=== PATIENT | female | born 1985 | race African-American/Black ===

== ENCOUNTER 2016-06-10 09:07 | Inpatient (IN) | payer OTHER ==
[~2016-06-10] VITALS: Ht 172.7 cm; Wt 72.0 kg
[2016-06-10] MEDS ORDERED: SOD CHLORIDE 0.9% 1,000 ML IV STA ×2 (09:28→13:20)
[2016-06-10] MEDS ORDERED: morphine 4 MG/ML VIAL IV STA ×2 (09:28→11:47)
[2016-06-10] MEDS ORDERED: ONDANSETRON 4 MG INJ IV STA (09:28)
--- NOTE | 2016-06-10 10:04 | ERD ---
ER Documentation Chief Complaint Date/Time DATE: 06/10/16 TIME: 10:01 Chief Complaint LLQ PAIN X 3 DAYS HPI This is a 31-year-old female with medical history of irregular menstrual periods all her life and iron deficient anemia presents to the emergency department complaining of severe left lower quadrant abdominal pain for the past day. Patient states that the pain started feeling like cramping in her left lower quadrant and it progressed into severe sharp constant pain. Patient states that she had 4 episodes of vomiting. She admits to nausea. She states her last bowel movement was yesterday and it was loose. Patient states that she started her menstrual period 3 weeks ago and still ongoing. She states that she has followed up with her physician in [place] last December regarding her irregular menstrual period, they suggested to put her on oral contraceptives however she states that she does not want to take that yet. Patient states that she has chills but denies any fevers. She states that she has not taken any medications for this. Patient states that she she will take iron and B12 only when she remembers. ROS All systems reviewed and are negative except as per history of present illness. Allergies Allergies: Coded Allergies: No Known Allergy (Unverified , 06/10/16) PMhx/Soc Medical and Surgical Hx: pt denies Surgical Hx Hx Alcohol Use: No Hx Substance Use: No Hx Tobacco Use: No Physical Exam Vitals Vital Signs Date Time Temp Pulse Resp B/P Pulse Ox O2 Delivery O2 Flow Rate FiO2 06/10/16 09:10 98.0 92 18 134/84 98 Physical Exam GENERAL: well-developed/well-nourished, in no apparent distress, non-toxic appearing HENT: NC/AT, moist mucous membranes EYES: Conjunctiva normal NECK: Supple, no lymphadenopathy PULM: CTA bilaterally, no rales, rhonchi, or wheezing heard CV: Normal S1S2, RRR, good capillary refill GI: Soft, non-distended, tender to palpation in all quadrants, left greater than although the quadrants, no tenderness in the pelvic region Normal bowel sounds, no masses or organomegaly felt on exam No gross peritonitis, no bruits Negative Rovsing, negative Carlos, negative McBurney's point, Negative CVAT BACK: No masses EXT: No clubbing, cyanosis, or edema NEURO: Alert and Orientated SKIN: Intact, normal turgor PSYCH: Normal mood and mentation Result Diagram: 06/10/16 1005 06/10/16 1005 Results 24 hrs Laboratory Tests Test 06/10/16 09:35 06/10/16 10:05 Urine Color YELLOW Urine Clarity SLIGHTLY CLOUDY Urine pH 5.0 Urine Specific Carson >=1.030 Urine Ketones 40 Urine Nitrite NEGATIVE Urine Bilirubin 1+ Urine Ictotest NEGATIVE Urine Urobilinogen 0.2 E.U./dL Urine Leukocyte Esterase NEGATIVE Urine Microscopic RBC 25-50/HPF Urine Microscopic WBC 2-5/HPF Urine Epithelial Cells FEW Urine Bacteria FEW Urine Hemoglobin 3+ Urine Glucose NEGATIVE% Urine Total Protein 1+ White Blood Count 10.110^3/ul Red Blood Count 3.6710^6/ul Hemoglobin 12.5g/dl Hematocrit 37.0% Mean Corpuscular Volume 100.8fl Mean Corpuscular Hemoglobin 34.1pg Mean Corpuscular Hemoglobin Concent 33.8g/dl Red Cell Distribution Width 17.6% Platelet Count 28283^3/UL Mean Platelet Volume 8.9fl Neutrophils % 91.5% Lymphocytes % 5.1% Monocytes % 2.9% Eosinophils % 0.0% Basophils % 0.1% Nucleated Red Blood Cells % 0.0/100WBC Neutrophils # 9.310^3/ul Lymphocytes # 0.510^3/ul Monocytes # 0.310^3/ul Eosinophils # 0.010^3/ul Basophils # 0.010^3/ul Nucleated Red Blood Cells # 0.010^3/ul Prothrombin Time 11.9Sec Prothrombin Time Ratio 0.9 INR International Normalized Ratio 0.88 Activated Partial Thromboplast Time 20.6Sec Sodium Level 136mmol/L Potassium Level 3.5mmol/L Chloride Level 99mmol/L Carbon Dioxide Level 21mmol/L Anion Gap 20 Blood Urea Nitrogen 5mg/dl Creatinine 0.56mg/dl Glucose Level 147mg/dl Calcium Level 9.6mg/dl Total Bilirubin 0.4mg/dl Direct Bilirubin 0.00mg/dl Indirect Bilirubin 0.4mg/dl Aspartate Amino Transf (AST/SGOT) 24IU/L Alanine Aminotransferase (ALT/SGPT) 15IU/L Alkaline Phosphatase 71IU/L Total Protein 8.4g/dl Albumin 4.5g/dl Globulin 3.90g/dl Albumin/Globulin Ratio 1.15 Lipase 20709N/L Beta HCG, Quantitative < 2.4mIU/ml Current Medications Medications (Trade) Dose Ordered Sig/Renay Route PRN Reason Start Time Stop Time Status Last Admin Dose Admin Sodium Chloride (NS) 1,000 ml @ 1,000 mls/hr Q1H STAT IV 06/10/16 09:28 06/10/16 10:27 DC 06/10/16 10:12 Morphine Sulfate (morphine) 6 mg ONCE STAT IV 06/10/16 09:28 06/10/16 09:31 DC 06/10/16 10:12 Ondansetron HCl (Zofran Inj) 8 mg ONCE STAT IV 06/10/16 09:28 06/10/16 09:31 DC 06/10/16 10:11 Morphine Sulfate (morphine) 4 mg ONCE STAT IV 06/10/16 11:47 06/10/16 11:49 DC 06/10/16 11:56 Hydromorphone HCl 0.5 mg 0.5 mg ONCE STAT IV 06/10/16 13:19 06/10/16 13:20 DC Sodium Chloride (NS) 1,000 ml @ 1,000 mls/hr Q1H STAT IV 06/10/16 13:20 06/10/16 14:19 Procedures/MDM This is a 31-year-old female with medical history of irregular menstrual periods all her life and iron deficient anemia presents to the emergency department complaining of severe left lower quadrant abdominal pain, nausea and vomiting for the past day due to acute pancreatitis, unknown etiology at this time. IV access is established. Lab work was drawn. CBC did not show any evidence of leukocytosis or anemia. CMP did not show any evidence of renal, liver, or electrolyte abnormalities. Lipase significantly elevated at ~20,000. UA did not show any evidence urinary tract infection. Urine preg test negative. CT of the abdomen and pelvis without contrast was done and radiologist stated: 1. Mild fluid posterior to the pancreatic body and tail extending into the left anterior pararenal space with no definite pancreatic mass. Rule out pancreatitis. A follow-up triple phase CT scan of the abdomen and pelvis may be helpful for further evaluation. 2. Small amount of free fluid in the cul-de-sac. No intra-abdominal abscess or free air. 3. No evidence of calcified urinary calculi or obstructive uropathy. 4. Unremarkable gallbladder without biliary ductal dilation. Pelvic ultrasound was done and radiologist stated: 1. Fibroids in the uterus measuring 2.3 cm and 2.1 cm. 2. Mild free fluid in the cul-de-sac. Clinical correlation advised. 3. Otherwise normal pelvic ultrasound. Patient was given 2 L of fluids in the ED, morphine, Dilaudid and Zofran. Pain symptoms have stabilized in the ED. I have consulted my supervising physician who will consult the hospitalist on site. Further management will be done by Dr. Garsia. Patient was stable throughout the whole encounter Departure Diagnosis: Primary Impression: Pancreatitis Condition: Serious MISAEL GALLEGOS PA-C Jun 10, 2016 10:04
[2016-06-10 10:33] LABS: ADD SCAN DIFF NO
[2016-06-10 10:44] LABS: ADD UMIC YES; URINE BILIRUBIN (Dip) 1+ (NEGATIVE); URINE BLOOD (Dip) 3+ (NEGATIVE); URINE COLOR YELLOW (YELLOW); URINE GLUCOSE (Dip) NEGATIVE (NEGATIVE); URINE KETONES (Dip) 40 (NEGATIVE); URINE LEUKOCYTE ESTERASE (Dip) NEGATIVE (NEGATIVE); URINE NITRITE (Dip) NEGATIVE (NEGATIVE); URINE TOTAL PROTEIN (Dip) 1+ (NEGATIVE); URINE UROBILINOGEN (Dip) 0.2 E.U./dL (0.1-1.0)
[2016-06-10 10:46] LABS: ABNORMAL IP MESSAGE 1; BASOPHILS % 0.1 % (0.0-2.0); HEMOGLOBIN 12.5 g/dl (12.0-16.0); LYMPHOCYTES # 0.5 10^3/ul (0.8-2.9); LYMPHOCYTES % 5.1 % (15.0-51.0); MEAN CORPUSCULAR HEMOGLOBIN 34.1 pg (29.0-33.0); MEAN CORPUSCULAR HGB CONC 33.8 g/dl (32.0-37.0); MEAN CORPUSCULAR VOLUME 100.8 fl (82.0-101.0); MEAN PLATELET VOLUME 8.9 fl (7.4-10.4); MONOCYTE # 0.3 10^3/ul (0.3-0.9); MONOCYTES % 2.9 % (0.0-11.0); NEUTROPHIL # 9.3 10^3/ul (1.6-7.5); NEUTROPHILS % 91.5 % (39.0-77.0); PLATELET COUNT 427 10^3/UL (140-415); RED BLOOD COUNT 3.67 10^6/ul (4.20-5.40); RED CELL DISTRIBUTION WIDTH 17.6 % (11.5-14.5); WHITE BLOOD COUNT 10.1 10^3/ul (4.8-10.8)
[2016-06-10 10:51] LABS: ALBUMIN 4.5 g/dl (3.3-4.9)
[2016-06-10 10:52] LABS: POTASSIUM 3.5 mmol/L (3.5-5.1)
[2016-06-10 10:53] LABS: INR 0.88; PROTIME 11.9 Sec (12.2-14.2); PT RATIO 0.9
[2016-06-10 10:54] LABS: BILIRUBIN,INDIRECT 0.4 mg/dl (0-1.1); BILIRUBIN,TOTAL 0.4 mg/dl (0.2-1.3); CREATININE 0.56 mg/dl (0.44-1.00); PARTIAL THROMBOPLASTIN TIME 20.6 Sec (25.0-35.0)
[2016-06-10 10:55] LABS: ALBUMIN/GLOBULIN RATIO 1.15; CALCIUM 9.6 mg/dl (8.4-10.2); TOTAL PROTEIN 8.4 g/dl (6.1-8.1)
[2016-06-10 10:58] LABS: BACTERIA,URINE FEW; URINE RBCS 25-50 /HPF (0)
[2016-06-10 10:59] LABS: ICTOTEST NEGATIVE (NEGATIVE)
--- NOTE | 2016-06-10 11:53 | RADRPT ---
PROCEDURE: CT Abdomen and pelvis without contrast. CLINICAL INDICATION: Left lower quadrant pain for 3 days TECHNIQUE: CT scan of the abdomen and pelvis without contrast was performed on a multidetector hig h-resolution CT scan. . Coronal and sagittal reformatted images were obtained from the axial [facility] e images. Standard CT scan of the abdomen pelvis without contrast protocols were performed. The total exam CTDI equals 10.80 mGy and the total exam DLP equals 662.55 mGy-cm. One or more of the following dose reduction techniques were used: - Automated exposure control. - Adjustment of the mA and/or kV according to patient size. Use of iterative reconstruction technique. COMPARISON: Pelvic ultrasound 06/10/2016 FINDINGS: The appendix is unremarkable. The stomach, small bowel and large bowel are unremarkable. There is mild fluid posterior to the pancreatic body and tail extending into the left anterior parar enal space with no definite pancreatic mass. Rule out pancreatitis. A follow-up CT triple phase sc an of the abdomen and pelvis may be helpful to further evaluate the pancreas. No evidence of pancre atic duct dilation. The gallbladder is unremarkable and there is no evidence of biliary ductal dilation. The liver sple en adrenal glands and kidneys are normal in size configuration without focal lesions. Negative for renal calcified calculi or hydronephrosis bilaterally. Small amount of free fluid in the cul-de-sac. No localized intra-abdominal fluid collection to sugg est abscess. No evidence of intra or free air. There is a calcified leiomyoma involving the anterio r uterine fundal region. No evidence of adnexal masses. The aorta is unremarkable. The lung bases are clear. There is a mild levorotatory scoliosis of the lumbar spine. There are no acute osseous findings are osteoblastic/osteolytic lesions. Lower thor acic abdominal pelvic mascorro are unremarkable. IMPRESSION: 1. Mild fluid posterior to the pancreatic body and tail extending into the left anterior pararenal space with no definite pancreatic mass. Rule out pancreatitis. A follow-up triple phase CT scan of the abdomen and pelvis may be helpful for further evaluation. 2. Small amount of free fluid in the cul-de-sac. No intra-abdominal abscess or free air. 3. No evidence of calcified urinary calculi or obstructive uropathy. 4. Unremarkable gallbladder without biliary ductal dilation. RPTAT:AAJJ Ijeoma Oneill Physician Date Time Electronically viewed and signed by Ijeoma Oneill Physician on 06/10/2016 11:52 BM/
--- NOTE | 2016-06-10 12:36 | RADRPT ---
PROCEDURE: US Pelvis. CLINICAL INDICATION: Pelvic pain. TECHNIQUE: The pelvis was evaluated with transabdominal and transvaginal sonography in the axial a nd sagittal planes. COMPARISON: CT scan of the abdomen and pelvis done earlier the same day. FINDINGS: Uterus: 6.6 x 3.4 x 4.1 cm. Endometrium: 5.7 mm. Right ovary: 2.8 x 1.9 x 2.0 cm. Left ovary: 2.7 x 1.8 x 2.3 cm. Uterine masses: There is an anterior partially calcified fibroid in the uterus measuring 2.3 x 1.6 x 2.1 cm and a left-sided hypoechoic fibroid measuring 1.8 x 2.1 x 2.0 cm Ovarian masses: None. Color Doppler and pulsed Doppler sonography demonstrate normal flow to the ova pooja. Other pelvic masses: None. Free fluid: There is mild free fluid in the cul-de-sac. IMPRESSION: 1. Fibroids in the uterus measuring 2.3 cm and 2.1 cm. 2. Mild free fluid in the cul-de-sac. Clinical correlation advised. 3. Otherwise normal pelvic ultrasound. RPTAT: QQ .Osiel Guerrero MD, Date Time Electronically viewed and signed by .Osiel Guerrero MD, on 06/10/2016 12:36 .R/
[2016-06-10] MEDS ORDERED: HYDROmorphONE 1 MG/ML SYG IV STA (13:19)
[2016-06-10] MEDS ORDERED: ONDANSETRON 4 MG INJ IV PRN ×2 (13:30→14:30)
[2016-06-10] MEDS ORDERED: ACETAMINOPHEN 325 MG TAB PO PRN ×2 (13:30→14:30)
--- NOTE | 2016-06-10 13:30 | QN ---
Documentation Comment I have seen and evaluated the patient along with the PA and/or DIESEL ENGINE SPECIALIST provider. I agree with the evaluation and plan of care. Please see their documentation for full ER course and evaluation. In short: The patient presents with abdominal pain radiating to her back. She did reports remote alcohol history but none recently. On exam: Benign abdominal exam, negative Carlos sign, patient is otherwise well-appearing Assessment and plan: Laboratory testing shows evidence of acute pancreatitis. Nonobstructive hepatobiliary pattern. CT imaging confirms pancreatitis. No signs or symptoms of choledocholithiasis or acute cholelithiasis. No evidence of mass. The patient is otherwise well-appearing in the emergency room. She has received IV fluids, pain medication, is made n.p.o. Inpatient hospitalization for trending of lipase would be appropriate. Unclear trigger of the patient's finger otitis, consider alcohol however the patient does report no alcohol use recently. Accepting care team and consultations: I discussed the current laboratory data, diagnostic imaging and emergency care provided. Admitting team: Dr. Lovett Admitting team indication: Insurance directed Diagnostic impression: Acute pancreatitis DIMA CONSTANTINO MD Jun 10, 2016 13:30
--- NOTE | 2016-06-10 13:38 | RADRPT ---
PROCEDURE: Right upper quadrant abdominal ultrasound. CLINICAL INDICATION: Abdominal pain, pancreatitis TECHNIQUE: Barajas scale and color doppler ultrasound images of the right upper quadrant. COMPARISON: CT abdomen pelvis 06/10/2016 FINDINGS: Pancreas: Pancreas is poorly visualized. Liver: Morphology: The right lobe of the liver is elongated measuring up to 18.0 cm which may reflect Daniela del's lobe configuration. Echogenicity: Normal. Focal lesions: None. Main portal vein: Patent with hepatopetal flow. Biliary System: Normal appearing gallbladder wall. No gallstones seen. No intrahepatic biliary dilatation. Common bile duct measures 2.8 mm in maximal dimension. Kidneys: Right 9.4 cm in length. Right renal cortical thickness is preserved. Normal echogenicity. No hydronephrosis. No renal calculi. No focal lesions. No free fluid identified. IMPRESSION: Normal gallbladder without gallstones. Pancreas is poorly visualized. RPTAT: AADD .Yakov Williamson MD, MD Date Time Electronically viewed and signed by .Yakov Williamson MD, on 06/10/2016 13:38 .B/
[2016-06-10] MEDS ORDERED: DOCUSATE SODIUM 100 MG CAP PO PRN (14:30)
[2016-06-10] MEDS ORDERED: NACL 0.9% 3 ML SYG IV SCH (14:30)
[2016-06-10] MEDS ORDERED: MAGNESIUM HYDROXIDE 30ML CUP PO PRN (14:30)
[2016-06-10] MEDS ORDERED: ACETAMINOPHEN 650 MG SUPP PR PRN (14:30)
[2016-06-10] MEDS ORDERED: BISACODYL 10 MG SUPP PR PRN (14:30)
--- NOTE | 2016-06-10 14:34 | HP ---
Date/Time of Note Date/Time of Note DATE: 06/10/16 TIME: 14:26 Assessment/Plan VTE Prophylaxis VTE Prophylaxis Intervention: SCD's Assessment/Plan Chief Complaint/Hosp Course Impression and plan 1. Acute pancreatitis. Patient with elevated lipase level as well as imaging consistent with acute pancreatitis. Will continue with aggressive IV hydration. Keep n.p.o. for now. Analgesics as needed. Will provide with antiemetics as well as needed 2. Reported iron deficiency anemia. Follow-up on iron level. GERD prophylaxis: PPI Admission process 40 minutes Discussed plan of care with Problems: HPI/ROS Admit Date/Time Admit Date/Time Hx of Present Illness This is a 31-year-old female with history of iron deficiency anemia as well as reported history of heavy menstruation cycles who did come to [facility] due to reports of abdominal pain. Patient did report her most recent menses started 3 weeks ago and is still currently menstruating. She did report she had abdominal pain from this and cramps but more notably her pain got worse for 1 day duration that was more on the left abdominal quadrant. She reports this was different from her normal abdominal cramps. She did have reported nausea and vomiting associated with it nonbilious nonbloody. She denies any sick contacts. No reported fevers but she did have some subjective chest chills.Abdominal CT scan done that did show mild fluid posterior to the pancreatic body and clinical picture that of acute pancreatitis. Her gallbladder imaging was unremarkable with no biliary ductal dilation or stone seen. Patient was found to have lipase level of 19,256 and she remained afebrile. Currently the patient does report having abdominal pain more on the left side 9 out 10 in intensity nonradiating. She denies any nausea vomiting at this time. She does report abdominal pain with oral consumption of food. Of note patient did report she did have a history of alcohol drinking that was heavy in the past but as of recent she denies any current heavy alcohol drinking. She did report that she had drank 3 times this week but only one glass of wine or beer during the times that she did drink. We will evaluate her for the aformentiond issues ROS 12 point review of systems obtained and entirely negative except that mentioned in history of present illness PMH/Family/Social Past Medical History Medical/surgical history 1. Iron deficiency anemia 2. Reported heavy menstruation cycles Family History Significant Family History: no pertinent family hx Social History Alcohol Use: occasionally Smoking Status: Never smoker Drug Use: none Exam/Review of Systems Vital Signs Vitals Vital Signs Date Time Temp Pulse Resp B/P Pulse Ox O2 Delivery O2 Flow Rate FiO2 06/10/16 09:10 98.0 92 18 134/84 98 Exam Constitutional: alert, oriented Psych: nl mood/affect Head: normocephalic Neck: non-tender, supple, No jvd Respiratory: clear to auscultation, normal air movement Cardiovascular: regular rate and rhythm Gastrointestinal: soft, tender Musculoskeletal: nl extremities to inspection, nl gait and stance, No swelling Extremities: normal pulses Neurological: MACHINE HOSE CUTTER II-XII intact, nl speech Skin: nl turgor Labs Result Diagram: 06/10/16 1005 06/10/16 1005 Medications Medications Current Medications Sodium Chloride (NS) 1,000 ml @ 125 mls/hr Q8H IV ; Start 06/10/16 at 14:00; Status UNV Ondansetron HCl (Zofran Inj) 4 mg Q6H PRN IV NAUSEA AND/OR VOMITING; Start at 14:30; Status UNV Acetaminophen (Tylenol Tab) 650 mg Q6H PRN PO PAIN LEVEL 1-3 OR FEVER; Start at 14:30; Status UNV Acetaminophen (Tylenol Supp) 650 mg Q6H PRN VA PAIN LEVEL 1-3 OR FEVER; Start 06/10/16 at 14:30; Status UNV Morphine Sulfate (morphine) 2 mg Q4H PRN IV SEVERE PAIN LEVEL 7-10; Start 06/10 at 14:30; Status UNV Docusate Sodium (Colace) 100 mg Q12H PRN PO CONSTIPATION; Start 06/10/16 at 14: 30; Status UNV Magnesium Hydroxide (Milk Of Mag) 30 ml DAILY PRN PO CONSTIPATION; Start at 14:30; Status UNV Bisacodyl (Dulcolax Supp) 10 mg DAILY PRN [place] CONSTIPATION; Start 06/10/16 at 14 :30; Status UNV Pantoprazole (Protonix Iv) 40 mg DAILY@06 IV ; Start 06/11/16 at 06:00; Status UNV COSMO ARAYA Jun 10, 2016 14:34
[2016-06-10] MEDS: SOD CHLORIDE 0.9% 1,000 ML IV SCH ×2 (15:15→22:00)
[2016-06-10 15:24] LABS: BARBITURATES NEGATIVE (NEGATIVE); BENZODIAZEPINES NEGATIVE (NEGATIVE); CANNABINOIDS NEGATIVE (NEGATIVE); COCAINE NEGATIVE (NEGATIVE); OPIATES NEGATIVE (NEGATIVE)
[2016-06-10] MEDS ORDERED: BARIUM SULFATE 0.1% 450 ML BTL (VOLUMEN) PO ONE (15:58)
[2016-06-10] MEDS ORDERED: SOD CHLORIDE 0.9% 100 ML ONE (18:17)
[2016-06-10] MEDS ORDERED: IOHEXOL 300MG/ML 150 ML BTL ONE (18:18)
[2016-06-10] MEDS: morphine 2 MG INJ IV PRN (18:47)
--- NOTE | 2016-06-10 20:52 | RADRPT ---
PROCEDURE: CT Abdomen and Pelvis with and without contrast. CLINICAL INDICATION: Abdominal and pelvic pain. Acute pancreatitis. TECHNIQUE: CT scan of the abdomen and pelvis with and without contrast was performed. The patient was scanned both before and following the uncomplicated intravenous administration of 100 cc of Omni paque 300. Triple phase scan was performed including arterial phase imaging of the pancreas. Coron al and sagittal reformatted images were obtained from the axial source images. Images were reviewed on a high-resolution PACS workstation. Total exam DLP is 1262.65 mGy-cm. CTDIvol is 11.66 mGy. On e or more of the following dose reduction techniques were used: Automated exposure control, adjustme nt of the mA and/or kV according to patient size, use of iterative reconstruction technique. COMPARISON: Prior noncontrast CT scan of the abdomen and pelvis done earlier the same day. FINDINGS: There is mild atelectasis at the left lung base posteriorly and there is a small left pleural effusi on. There is no right pleural effusion. The right lung base is normal. The heart size is normal a nd there is no pericardial effusion. The liver is normal in size and attenuation. There is no focal hepatic lesion. The gallbladder and bile ducts are normal. The spleen is normal in size. There is no focal splenic lesion. Both adrenals are normal with no enlargement or mass. The pancreas demonstrates normal contrast enhancement. There is no evidence of pancreatic necrosis. There is acute pancreatitis with peripancreatic mesenteric edema and free fluid in the left and ri ght anterior pararenal spaces. More fluid is present on the left than right. Fluid extends superio rly adjacent to the spleen and inferiorly in the left paracolic gutter. A moderate amount of free f luid is also present in the pelvis within the cul-de-sac. Both kidneys demonstrate normal contrast enhancement. There is no renal mass or hydronephrosis. T here is no renal calculus or ureteral calculus. The abdominal aorta is not dilated. There is no retroperitoneal lymphadenopathy or mass. There is no pelvic lymphadenopathy. Small calcified and noncalcified fibroids are present in the ut erus. There is no other pelvic mass. The bladder and distal ureters are normal. The periappendiceal region is unremarkable with no evidence of appendicitis. There is mildly dilated duodenum and proximal jejunum consistent with ileus. There is no evidence o f obstruction. There is no free air. The osseous structures are unremarkable with no fracture or lytic lesion. IMPRESSION: 1. Mild left basilar atelectasis and small left pleural effusion. 2. Acute pancreatitis with no evidence of necrosis. 3. Free fluid in the left and right anterior pararenal spaces with left more than right. Free flui d also extends along the left pericolic gutter and into the pelvis. There is no abscess or pseudocy st. 4. Ileus with dilated duodenum and proximal jejunum. 5. Otherwise unremarkable study. RPTAT: QQ .Osiel Guerrero MD, MD Date Time Electronically viewed and signed by .Osiel Guerrero MD, MD on 06/10/2016 20:52 .R/
[2016-06-10 21:06] VITALS: PULSE 100; TEMP 99.6
[2016-06-10 21:25] VITALS: BP 129/88; RESP 20
[2016-06-10 21:45] VITALS: Ht 172.7 cm; Wt 72.0 kg
[2016-06-11] MEDS: SOD CHLORIDE 0.9% 1,000 ML IV SCH ×4 (01:13→21:53)
[2016-06-11] MEDS: morphine 2 MG INJ IV PRN ×4 (03:19→21:04)
[2016-06-11] MEDS: PANTOPRAZOLE 40 MG INJ IV SCH (05:26)
[2016-06-11 06:09] LABS: ALANINE AMINOTRANSFERASE 20 IU/L (13-69); ALBUMIN 3.1 g/dl (3.3-4.9); ALBUMIN/GLOBULIN RATIO 1.06; ALKALINE PHOSPHATASE 52 IU/L (42-121); ANION GAP 6 (8-16); ASPARTATE AMINO TRANSFERASE 16 IU/L (15-46); BILIRUBIN,INDIRECT 0.5 mg/dl (0-1.1); BILIRUBIN,TOTAL 0.5 mg/dl (0.2-1.3); CALCIUM 8.2 mg/dl (8.4-10.2); CARBON DIOXIDE 26 mmol/L (21-31); CHLORIDE 104 mmol/L (97-110); CHOLESTEROL 199 mg/dl (100-200); CREATININE 0.54 mg/dl (0.44-1.00); GLUCOSE 105 mg/dl (70-220); MAGNESIUM 1.2 mg/dl (1.7-2.5); PHOSPHORUS 2.7 mg/dl (2.5-4.9); POTASSIUM 3.1 mmol/L (3.5-5.1); SODIUM 133 mmol/L (135-144); TRIGLYCERIDES 87 mg/dl (0-149)
[2016-06-11 06:24] LABS: T3 UPTAKE 31.9 % (23.5-40.5)
[2016-06-11 06:37] LABS: ADD SCAN DIFF NO
[2016-06-11 06:49] LABS: BASOPHILS % 0.1 % (0.0-2.0); HEMATOCRIT 32.3 % (37.0-47.0); HEMOGLOBIN 10.6 g/dl (12.0-16.0); LYMPHOCYTES # 1.2 10^3/ul (0.8-2.9); LYMPHOCYTES % 17.2 % (15.0-51.0); MEAN CORPUSCULAR HEMOGLOBIN 33.9 pg (29.0-33.0); MEAN CORPUSCULAR HGB CONC 32.8 g/dl (32.0-37.0); MEAN CORPUSCULAR VOLUME 103.2 fl (82.0-101.0); MEAN PLATELET VOLUME 9.1 fl (7.4-10.4); MONOCYTE # 0.3 10^3/ul (0.3-0.9); NEUTROPHIL # 5.2 10^3/ul (1.6-7.5); NEUTROPHILS % 77.4 % (39.0-77.0); PLATELET COUNT 313 10^3/UL (140-415); RED BLOOD COUNT 3.13 10^6/ul (4.20-5.40); RED CELL DISTRIBUTION WIDTH 18.3 % (11.5-14.5); WHITE BLOOD COUNT 6.7 10^3/ul (4.8-10.8)
[2016-06-11 06:55] LABS: BLOOD UREA NITROGEN < 2 mg/dl (7-20); CHOL/HDL RATIO 1.2 RATIO; HDL CHOLESTEROL 156 mg/dl (34-82)
[2016-06-11 08:00] VITALS: BP 126/88; RESP 19
--- NOTE | 2016-06-11 11:00 | PN ---
Date/Time of Note Date/Time of Note DATE: 06/11/16 TIME: 10:57 Assessment/Plan VTE Prophylaxis VTE Prophylaxis Intervention: SCD's Lines/Catheters [facility] Type (from [facility] Peripheral IV Urinary Cath still in place: No Assessment/Plan Chief Complaint/Hosp Course Impression and plan 1. Acute pancreatitis. Patient with elevated lipase level as well as imaging consistent with acute pancreatitis. Continue n.p.o. diet. Continue with IV hydration. Noted to be slightly improving at this time. Monitor lipase. Analgesics as needed. 2. Reported iron deficiency anemia. Follow-up on iron level. 3. Hypokalemia. Will replete and check level in a.m. 4. Hypomagnesemia. Will replete and check level in a.m. GERD prophylaxis: PPI Disposition and plan: Replenish electrolytes. Continue n.p.o. Await for clinical improvement of pancreatitis. Discussed plan of care with Problems: Subjective 24 Hr Interval Summary Free Text/Dictation Still reports having some abdominal pain 8 out of 10. Reports is less at this time. Exam/Review of Systems Vital Signs Vitals Vital Signs Date Time Temp Pulse Resp B/P Pulse Ox O2 Delivery O2 Flow Rate FiO2 06/11/16 08:00 98.6 97 19 126/88 98 06/10/16 21:06 Room Air Intake and Output 06/10/16 06/10/16 06/11/16 15:00 23:00 07:00 Intake Total 1500 ml Balance 1500 ml Exam Constitutional: alert, oriented Psych: nl mood/affect Head: normocephalic Eyes: nl conjunctiva Neck: supple, No jvd Respiratory: clear to auscultation, normal air movement Cardiovascular: regular rate and rhythm Gastrointestinal: soft, tender Musculoskeletal: nl extremities to inspection, nl gait and stance Extremities: normal pulses Neurological: SAMPLE MAKER II-XII intact, nl mental status, nl speech Skin: nl turgor Results Result Diagram: 06/11/16 0449 06/11/16 0440 Results 24 hrs Laboratory Tests Test 06/11/16 04:40 06/11/16 04:49 Sodium Level 133 L Potassium Level 3.1 L Chloride Level 104 Carbon Dioxide Level 26 Anion Gap 6 #L Blood Urea Nitrogen < 2 L Creatinine 0.54 Glucose Level 105 # Hemoglobin A1c 4.9 Calcium Level 8.2 L Phosphorus Level 2.7 Magnesium Level 1.2 L Total Bilirubin 0.5 Direct Bilirubin 0.00 Indirect Bilirubin 0.5 Aspartate Amino Transf (AST/SGOT) 16 Alanine Aminotransferase (ALT/SGPT) 20 Alkaline Phosphatase 52 Total Protein 6.0 #L Albumin 3.1 #L Globulin 2.90 Albumin/Globulin Ratio 1.06 Triglycerides Level 87 Cholesterol Level 199 LDL Cholesterol, Calculated 26 HDL Cholesterol 156 H Cholesterol/HDL Ratio 1.2 Lipase 4968 H Thyroid Stimulating Hormone (TSH) 3.580 Free Thyroxine Index 2.20 Thyroxine (T4) 6.9 Triiodothyronine (T3) Uptake 31.9 White Blood Count 6.7 # Red Blood Count 3.13 L Hemoglobin 10.6 L Hematocrit 32.3 L Mean Corpuscular Volume 103.2 H Mean Corpuscular Hemoglobin 33.9 H Mean Corpuscular Hemoglobin Concent 32.8 Red Cell Distribution Width 18.3 H Platelet Count 313 # Mean Platelet Volume 9.1 Neutrophils % 77.4 H Lymphocytes % 17.2 Monocytes % 5.0 Eosinophils % 0.0 Basophils % 0.1 Nucleated Red Blood Cells % 0.0 Neutrophils # 5.2 Lymphocytes # 1.2 Monocytes # 0.3 Eosinophils # 0.0 Basophils # 0.0 Nucleated Red Blood Cells # 0.0 Medications Medications Current Medications Sodium Chloride (NS) 1,000 ml @ 125 mls/hr Q8H IV Last administered on 09:01; Admin Dose 125 MLS/HR; Start 06/10/16 at 14:00 Ondansetron HCl (Zofran Inj) 4 mg Q6H PRN IV NAUSEA AND/OR VOMITING; Start at 14:30 Acetaminophen (Tylenol Tab) 650 mg Q6H PRN PO PAIN LEVEL 1-3 OR FEVER; Start at 14:30 Acetaminophen (Tylenol Supp) 650 mg Q6H PRN NE PAIN LEVEL 1-3 OR FEVER; Start 06/10/16 at 14:30 Morphine Sulfate (morphine) 2 mg Q4H PRN IV SEVERE PAIN LEVEL 7-10 Last administered on 06/11/16 09:02; Admin Dose 2 MG; Start 06/10/16 at 14:30 Docusate Sodium (Colace) 100 mg Q12H PRN PO CONSTIPATION; Start 06/10/16 at 14: 30 Magnesium Hydroxide (Milk Of Mag) 30 ml DAILY PRN PO CONSTIPATION; Start at 14:30 Bisacodyl (Dulcolax Supp) 10 mg DAILY PRN [place] CONSTIPATION; Start 06/10/16 at 14 :30 Pantoprazole 40 mg 40 mg DAILY@06 IV Last administered on 06/11/16t 05:26; Admin Dose 40 MG; Start 06/11/16 at 06:00 Potassium Chloride 250 ml @ 62.5 mls/hr ONCE ONCE IVPB ; Start 06/11/16 at 11: 30; Stop 06/11/16 at 15:29 Magnesium Sulfate (Magnesium Sulfate 4 Gm/100 ml) 100 ml @ 25 mls/hr ONCE ONCE IVPB ; Start 06/11/16 at 11:30; Stop 06/11/16 at 15:29 COSMO ARAYA Jun 11, 2016 11:00
[2016-06-11] MEDS ORDERED: POTASSIUM CHLORIDE 250 ML IVPB ONE (11:30)
[2016-06-11] MEDS ORDERED: MAGNESIUM SULFATE 4 GM/100 ML 100 ML IVPB ONE (11:30)
[2016-06-11 12:37] LABS: TOTAL IRON BINDING CAPACITY 215 ug/dl (241-421)
[2016-06-11 12:39] LABS: IRON < 10 ug/dl (35-150)
[2016-06-11 21:19] VITALS: BP 116/65; RESP 18
[2016-06-12] MEDS: SOD CHLORIDE 0.9% 1,000 ML IV SCH ×2 (02:06→09:41)
[2016-06-12] MEDS: PANTOPRAZOLE 40 MG INJ IV SCH (05:22)
[2016-06-12] MEDS: morphine 2 MG INJ IV PRN ×5 (05:23→23:02)
[2016-06-12 06:52] LABS: ADD SCAN DIFF NO
[2016-06-12 06:54] LABS: BASOPHILS % 0.1 % (0.0-2.0); EOSINOPHILS % 0.1 % (0.0-7.0); HEMATOCRIT 30.8 % (37.0-47.0); HEMOGLOBIN 10.1 g/dl (12.0-16.0); LYMPHOCYTES # 1.1 10^3/ul (0.8-2.9); LYMPHOCYTES % 13.9 % (15.0-51.0); MEAN CORPUSCULAR HEMOGLOBIN 34.2 pg (29.0-33.0); MEAN CORPUSCULAR HGB CONC 32.8 g/dl (32.0-37.0); MEAN CORPUSCULAR VOLUME 104.4 fl (82.0-101.0); MEAN PLATELET VOLUME 9.1 fl (7.4-10.4); MONOCYTE # 0.6 10^3/ul (0.3-0.9); NEUTROPHIL # 6.4 10^3/ul (1.6-7.5); NEUTROPHILS % 77.9 % (39.0-77.0); PLATELET COUNT 306 10^3/UL (140-415); RED BLOOD COUNT 2.95 10^6/ul (4.20-5.40); RED CELL DISTRIBUTION WIDTH 18.6 % (11.5-14.5); WHITE BLOOD COUNT 8.2 10^3/ul (4.8-10.8)
[2016-06-12 07:40] LABS: CALCIUM 8.6 mg/dl (8.4-10.2); CREATININE 0.54 mg/dl (0.44-1.00); POTASSIUM 3.4 mmol/L (3.5-5.1)
[2016-06-12 07:44] VITALS: BP 109/70; RESP 20
[2016-06-12] MEDS ORDERED: POTASSIUM CHLORIDE 20 MEQ in SOD CHLORIDE 0.9% 100 ML IVPB ONE (14:30)
[2016-06-12] MEDS: D5W-0.45 NACL + KCL 20 MEQ 1,000 ML IV SCH ×2 (14:31→23:00)
[2016-06-12] MEDS: SOD FERRIC GLUC COMPLX 125 MG in SOD CHLORIDE 0.9% 100 ML IVPB SCH (16:34)
--- NOTE | 2016-06-12 16:37 | PN ---
DATE: 06/12/2016 TIME OF EVALUATION: 12:30 p.m. SUBJECTIVE DATA: Complains of abdominal pain. Requests pain medications around the clock. OBJECTIVE DATA: VITAL SIGNS: Temperature 98.9, pulse rate 97, respiratory rate 20, blood pressure 109/70, oxygen saturation 99% on room air. GENERAL: This is a 31-year-old -[place] female lying in bed in no apparent distress. HEENT: Head normocephalic and atraumatic. Eyes: Anicteric sclerae. Conjunctivae clear. ENT: Nasal septum is midline. Oral mucosa is dry. NECK: Supple. No JVD noticed. RESPIRATORY: Bilaterally clear to auscultation. No adventitious breath sounds. No use of accessory muscles of respiration. CARDIAC: Regular rate and rhythm. No murmurs. ABDOMEN: Soft. Nondistended. Tender to touch in the left upper quadrant. Bowel sounds positive in all 4 quadrants. GENITOURINARY: Deferred. EXTREMITIES: No cyanosis, no clubbing, no edema. Peripheral pulses palpable. NEUROLOGIC: The patient is awake, alert and oriented. Cranial nerves are grossly intact. LABORATORY AND DIAGNOSTIC DATA: WBC 8.2, hemoglobin 10.1, platelet count 306. Sodium 135, potassium 3.4, chloride 106, carbon dioxide 25, anion gap 8, BUN 4, creatinine 0.54, glucose 91, calcium 8.6. Lipase 937. ASSESSMENT AND PLAN: 1. Acute alcoholic pancreatitis. Continue to monitor the patient n.p.o. Continue IV fluids. Continue pain control. 2. Iron-deficiency anemia. Continue iron supplements. 3. Menorrhagia. Status post pelvic ultrasound that is showing fibroids in the uterus, measuring 2.3 x 2.1 cm. 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 4. Fluid, electrolytes and nutrition. Continue IV fluids. Continue n.p.o. 5. Deep venous thrombosis prophylaxis. Bilateral sequential compression devices. 6. Gastrointestinal prophylaxis. Proton pump inhibitors. PLAN: Continue n.p.o. Continue IV hydration. Continue pain control. Continue to trend lipase levels. Replete potassium. The case discussed with Dr. Celis. ANTONIO CELIS AM/ROSLYN Conf#: [id number] DID#: [id number] [facility]
[2016-06-12 20:06] VITALS: BP 124/61; RESP 18
[2016-06-13] MEDS: D5W-0.45 NACL + KCL 20 MEQ 1,000 ML IV SCH ×3 (01:14→22:24)
[2016-06-13] MEDS: PANTOPRAZOLE 40 MG INJ IV SCH (05:08)
[2016-06-13] MEDS: morphine 2 MG INJ IV PRN ×4 (05:38→20:41)
[2016-06-13 06:05] LABS: AMYLASE 151 U/L (11-123)
[2016-06-13 06:18] LABS: ADD SCAN DIFF NO
[2016-06-13 06:26] LABS: BASOPHILS % 0.1 % (0.0-2.0); EOSINOPHILS % 0.4 % (0.0-7.0); HEMATOCRIT 29.7 % (37.0-47.0); HEMOGLOBIN 9.9 g/dl (12.0-16.0); LYMPHOCYTES # 0.8 10^3/ul (0.8-2.9); LYMPHOCYTES % 9.9 % (15.0-51.0); MEAN CORPUSCULAR HEMOGLOBIN 34.4 pg (29.0-33.0); MEAN CORPUSCULAR HGB CONC 33.3 g/dl (32.0-37.0); MEAN CORPUSCULAR VOLUME 103.1 fl (82.0-101.0); MONOCYTE # 0.9 10^3/ul (0.3-0.9); MONOCYTES % 10.8 % (0.0-11.0); NEUTROPHIL # 6.4 10^3/ul (1.6-7.5); NEUTROPHILS % 78.3 % (39.0-77.0); PLATELET COUNT 311 10^3/UL (140-415); RED BLOOD COUNT 2.88 10^6/ul (4.20-5.40); RED CELL DISTRIBUTION WIDTH 18.1 % (11.5-14.5); WHITE BLOOD COUNT 8.2 10^3/ul (4.8-10.8)
[2016-06-13 07:42] VITALS: BP 107/70; RESP 20
[2016-06-13 08:05] LABS: POTASSIUM 3.4 mmol/L (3.5-5.1)
[2016-06-13 08:08] LABS: CREATININE 0.54 mg/dl (0.44-1.00)
[2016-06-13 08:09] LABS: CALCIUM 8.7 mg/dl (8.4-10.2)
[2016-06-13] MEDS ORDERED: POTASSIUM CHLORIDE (SR) 20 MEQ TAB PO STA (16:02)
--- NOTE | 2016-06-13 16:06 | PN ---
Date/Time of Note Date/Time of Note DATE: 06/13/16 TIME: 16:02 Assessment/Plan VTE Prophylaxis VTE Prophylaxis Intervention: SCD's Lines/Catheters IV Catheter Type (from Nrs): Peripheral IV Urinary Cath still in place: No Assessment/Plan Assessment/Plan 1. Acute alcoholic pancreatitis. alcohol related, start diet. 2. Iron-deficiency anemia due to heavy menses, Continue iron supplements. Subjective 24 Hr Interval Summary Free Text/Dictation abdominal pain, less. No nausea or vomiting Exam/Review of Systems Vital Signs Vitals Vital Signs Date Time Temp Pulse Resp B/P Pulse Ox O2 Delivery O2 Flow Rate FiO2 06/13/16 07:42 99.5 68 20 107/70 99 06/10/16 21:06 Room Air Intake and Output 06/12/16 06/12/16 06/13/16 15:00 23:00 07:00 Intake Total 625 ml 620 ml 1400 ml Balance 625 ml 620 ml 1400 ml Exam Constitutional: alert, oriented, well developed Psych: nl mood/affect, no complaints Head: atraumatic Eyes: EOMI, PERRL, nl conjunctiva, nl lids ENMT: mucosa pink and moist, nl external ears & nose, nl lips & teeth, nl nasal mucosa & septum Neck: non-tender, supple Respiratory: clear to auscultation, normal air movement, No congested cough, No crackles/rales, No diminished breath sounds, No intercostal retraction, No labored breathing, No other, No respirations, No tactile fremitus, No wheezing Cardiovascular: nl pulses, regular rate and rhythm, No S3, No S4, No bruits, No diastolic murmur, No edema, No gallop, No irregular rhythm, No jugular venous distention (JVD), No murmurs/extra sounds, No other, No rub, No systolic murmur Gastrointestinal: nl liver, spleen, soft, tender (left sided ), No ascites, No bowel sounds, No distended, No firm, No hepatomegaly, No mass , No other, No rebound or guarding, No splenomegaly Extremities: normal pulses, No calf tenderness, No clubbing, No cyanosis, No edema, No other, No palpable cord, No pitting pedal edema, No tenderness Neurological: KNOBBER II-XII intact, nl mental status, nl speech, nl strength Skin: nl turgor Results Result Diagram: 06/13/16 0507 06/13/16 0507 Results 24 hrs Laboratory Tests Test 06/13/16 05:05 06/13/16 05:07 Magnesium Level 1.7 Amylase Level 151 H Lipase 646 H White Blood Count 8.2 Red Blood Count 2.88 L Hemoglobin 9.9 L Hematocrit 29.7 L Mean Corpuscular Volume 103.1 H Mean Corpuscular Hemoglobin 34.4 H Mean Corpuscular Hemoglobin Concent 33.3 Red Cell Distribution Width 18.1 H Platelet Count 311 Mean Platelet Volume 9.0 Neutrophils % 78.3 H Lymphocytes % 9.9 L Monocytes % 10.8 Eosinophils % 0.4 Basophils % 0.1 Nucleated Red Blood Cells % 0.0 Neutrophils # 6.4 Lymphocytes # 0.8 Monocytes # 0.9 Eosinophils # 0.0 Basophils # 0.0 Nucleated Red Blood Cells # 0.0 Sodium Level 133 L Potassium Level 3.4 L Chloride Level 101 Carbon Dioxide Level 23 Anion Gap 12 Blood Urea Nitrogen 2 L Creatinine 0.54 Glucose Level 111 Calcium Level 8.7 Medications Medications Current Medications Ondansetron HCl (Zofran Inj) 4 mg Q6H PRN IV NAUSEA AND/OR VOMITING; Start at 14:30 Acetaminophen (Tylenol Tab) 650 mg Q6H PRN PO PAIN LEVEL 1-3 OR FEVER; Start at 14:30 Acetaminophen (Tylenol Supp) 650 mg Q6H PRN [place] PAIN LEVEL 1-3 OR FEVER; Start 06/10/16 at 14:30 Morphine Sulfate (morphine) 2 mg Q4H PRN IV SEVERE PAIN LEVEL 7-10 Last administered on 06/13/16 10:19; Admin Dose 2 MG; Start 06/10/16 at 14:30 Docusate Sodium (Colace) 100 mg Q12H PRN PO CONSTIPATION; Start 06/10/16 at 14: 30 Magnesium Hydroxide (Milk Of Mag) 30 ml DAILY PRN PO CONSTIPATION; Start at 14:30 Bisacodyl (Dulcolax Supp) 10 mg DAILY PRN [place] CONSTIPATION; Start 06/10/16 at 14 :30 Pantoprazole 40 mg 40 mg DAILY@06 IV Last administered on 06/13/16 05:08; Admin Dose 40 MG; Start 06/11/16 at 06:00 Potassium Chloride/Dextrose/ Sod Cl 1,000 ml @ 100 mls/hr Q10H IV Last administered on 06/13/16 12:00; Admin Dose 100 MLS/HR; Start 06/12/16 at 13:00 Ferric Sodium Gluconate Complex/ Sodium Chloride (Ferrlecit/NS) 110 ml @ 100 mls/hr Q24H IVPB Last administered on 06/12/16 16:34; Admin Dose 100 MLS/HR; Start 06/12/16 at 16:30; Stop 06/14/16 at 17:35 KATELYNN NICOLAS MD June 13, 2016 16:06
[2016-06-13] MEDS: SOD FERRIC GLUC COMPLX 125 MG in SOD CHLORIDE 0.9% 100 ML IVPB SCH (16:31)
[2016-06-13 20:40] VITALS: BP 125/80; RESP 18
[2016-06-14] MEDS: morphine 2 MG INJ IV PRN ×6 (00:39→21:17)
[2016-06-14] MEDS: PANTOPRAZOLE 40 MG INJ IV SCH (05:15)
[2016-06-14 06:26] LABS: AMYLASE 148 U/L (11-123)
[2016-06-14 07:17] LABS: ADD SCAN DIFF NO
[2016-06-14 07:19] LABS: BASOPHILS % 0.2 % (0.0-2.0); EOSINOPHILS % 0.7 % (0.0-7.0); HEMATOCRIT 29.7 % (37.0-47.0); HEMOGLOBIN 10.1 g/dl (12.0-16.0); LYMPHOCYTES # 0.8 10^3/ul (0.8-2.9); LYMPHOCYTES % 13.7 % (15.0-51.0); MEAN CORPUSCULAR HEMOGLOBIN 34.6 pg (29.0-33.0); MEAN CORPUSCULAR VOLUME 101.7 fl (82.0-101.0); MONOCYTE # 0.8 10^3/ul (0.3-0.9); MONOCYTES % 13.1 % (0.0-11.0); NEUTROPHIL # 4.3 10^3/ul (1.6-7.5); PLATELET COUNT 359 10^3/UL (140-415); RED BLOOD COUNT 2.92 10^6/ul (4.20-5.40); RED CELL DISTRIBUTION WIDTH 17.9 % (11.5-14.5)
[2016-06-14 07:40] VITALS: BP 107/72; RESP 20
[2016-06-14 07:43] LABS: CHLORIDE 102 mmol/L (97-110); POTASSIUM 3.8 mmol/L (3.5-5.1); SODIUM 135 mmol/L (135-144)
[2016-06-14 07:46] LABS: ANION GAP 12 (8-16); CALCIUM 8.9 mg/dl (8.4-10.2); CARBON DIOXIDE 25 mmol/L (21-31); CREATININE 0.57 mg/dl (0.44-1.00); GLUCOSE 109 mg/dl (70-220)
[2016-06-14 07:47] LABS: BLOOD UREA NITROGEN < 2 mg/dl (7-20)
[2016-06-14] MEDS: D5W-0.45 NACL + KCL 20 MEQ 1,000 ML IV SCH ×2 (08:36→21:13)
--- NOTE | 2016-06-14 15:36 | PN ---
Date/Time of Note Date/Time of Note DATE: 06/14/16 TIME: 15:34 Assessment/Plan VTE Prophylaxis VTE Prophylaxis Intervention: SCD's Lines/Catheters IV Catheter Type (from Nrs): Peripheral IV Urinary Cath still in place: No Assessment/Plan Assessment/Plan 1. Acute alcoholic pancreatitis. alcohol related, advance diet. 2. Iron-deficiency anemia due to heavy menses, Continue iron supplements 3. Consider d/c tomorrow if tolerates diet Subjective 24 Hr Interval Summary Free Text/Dictation still with abdominal pain but not worse after eating Exam/Review of Systems Vital Signs Vitals Vital Signs Date Time Temp Pulse Resp B/P Pulse Ox O2 Delivery O2 Flow Rate FiO2 06/14/16 07:40 98.6 87 20 107/72 96 06/10/16 21:06 Room Air Intake and Output 06/13/16 06/13/16 06/14/16 15:00 23:00 07:00 Intake Total 600 ml 1000 ml 800 ml Balance 600 ml 1000 ml 800 ml Exam Constitutional: alert, oriented, well developed Psych: nl mood/affect, no complaints Head: atraumatic, normocephalic Eyes: EOMI, PERRL, nl conjunctiva, nl lids ENMT: nl external ears & nose, nl lips & teeth, nl nasal mucosa & septum Neck: non-tender, supple Respiratory: clear to auscultation, normal air movement, No congested cough, No crackles/rales, No diminished breath sounds, No intercostal retraction, No labored breathing, No other, No respirations, No tactile fremitus, No wheezing Cardiovascular: nl pulses, regular rate and rhythm, No S3, No S4, No bruits, No diastolic murmur, No edema, No gallop, No irregular rhythm, No jugular venous distention (JVD), No murmurs/extra sounds, No other, No rub, No systolic murmur Gastrointestinal: nl liver, spleen, soft, tender, No ascites, No bowel sounds, No distended, No firm, No hepatomegaly, No mass , No other, No rebound or guarding, No splenomegaly, No surgical scars Musculoskeletal: nl extremities to inspection Extremities: normal pulses, No calf tenderness, No clubbing, No cyanosis, No edema, No other, No palpable cord, No pitting pedal edema, No tenderness Neurological: COMMUNITY PHARMACIST II-XII intact, nl mental status, nl speech, nl strength Skin: nl turgor Lymph: nl lymph nodes Results Result Diagram: 06/14/16 0501 06/14/16 0501 Results 24 hrs Laboratory Tests Test 06/14/16 05:01 White Blood Count 6.0 # Red Blood Count 2.92 L Hemoglobin 10.1 L Hematocrit 29.7 L Mean Corpuscular Volume 101.7 H Mean Corpuscular Hemoglobin 34.6 H Mean Corpuscular Hemoglobin Concent 34.0 Red Cell Distribution Width 17.9 H Platelet Count 359 Mean Platelet Volume 9.0 Neutrophils % 72.0 Lymphocytes % 13.7 L Monocytes % 13.1 H Eosinophils % 0.7 Basophils % 0.2 Nucleated Red Blood Cells % 0.0 Neutrophils # 4.3 Lymphocytes # 0.8 Monocytes # 0.8 Eosinophils # 0.0 Basophils # 0.0 Nucleated Red Blood Cells # 0.0 Sodium Level 135 Potassium Level 3.8 Chloride Level 102 Carbon Dioxide Level 25 Anion Gap 12 Blood Urea Nitrogen < 2 L Creatinine 0.57 Glucose Level 109 Calcium Level 8.9 Magnesium Level 1.7 Amylase Level 148 H Lipase 541 H Medications Medications Current Medications Ondansetron HCl (Zofran Inj) 4 mg Q6H PRN IV NAUSEA AND/OR VOMITING; Start at 14:30 Acetaminophen (Tylenol Tab) 650 mg Q6H PRN PO PAIN LEVEL 1-3 OR FEVER; Start at 14:30 Acetaminophen (Tylenol Supp) 650 mg Q6H PRN [place] PAIN LEVEL 1-3 OR FEVER; Start 06/10/16 at 14:30 Morphine Sulfate (morphine) 2 mg Q4H PRN IV SEVERE PAIN LEVEL 7-10 Last administered on 06/14/16 13:12; Admin Dose 2 MG; Start 06/10/16 at 14:30 Docusate Sodium (Colace) 100 mg Q12H PRN PO CONSTIPATION; Start 06/10/16 at 14: 30 Magnesium Hydroxide (Milk Of Mag) 30 ml DAILY PRN PO CONSTIPATION; Start at 14:30 Bisacodyl (Dulcolax Supp) 10 mg DAILY PRN [place] CONSTIPATION; Start 06/10/16 at 14 :30 Pantoprazole 40 mg 40 mg DAILY@06 IV Last administered on 06/14/16 05:15; Admin Dose 40 MG; Start 06/11/16 at 06:00 Potassium Chloride/Dextrose/ Sod Cl 1,000 ml @ 100 mls/hr Q10H IV Last administered on 06/14/16 08:36; Admin Dose 100 MLS/HR; Start 06/12/16 at 13:00 Ferric Sodium Gluconate Complex/ Sodium Chloride (Ferrlecit/NS) 110 ml @ 100 mls/hr Q24H IVPB Last administered on 06/13/16 16:31; Admin Dose 100 MLS/HR; Start 06/12/16 at 16:30; Stop 06/14/16 at 17:35 KATELYNN NICOLAS MD June 14, 2016 15:36
[2016-06-14] MEDS: SOD FERRIC GLUC COMPLX 125 MG in SOD CHLORIDE 0.9% 100 ML IVPB SCH (17:08)
[2016-06-14 21:02] VITALS: BP 108/65; RESP 20
[2016-06-15] MEDS: morphine 2 MG INJ IV PRN ×4 (01:50→14:41)
[2016-06-15] MEDS: PANTOPRAZOLE 40 MG INJ IV SCH (05:52)
[2016-06-15] MEDS: D5W-0.45 NACL + KCL 20 MEQ 1,000 ML IV SCH (05:54)
[2016-06-15 06:16] LABS: ADD SCAN DIFF NO
[2016-06-15 06:27] LABS: BASOPHILS % 0.2 % (0.0-2.0); EOSINOPHILS % 0.6 % (0.0-7.0); HEMATOCRIT 30.7 % (37.0-47.0); LYMPHOCYTES # 1.2 10^3/ul (0.8-2.9); LYMPHOCYTES % 18.5 % (15.0-51.0); MEAN CORPUSCULAR HEMOGLOBIN 33.3 pg (29.0-33.0); MEAN CORPUSCULAR HGB CONC 32.6 g/dl (32.0-37.0); MEAN CORPUSCULAR VOLUME 102.3 fl (82.0-101.0); MEAN PLATELET VOLUME 8.7 fl (7.4-10.4); MONOCYTE # 0.8 10^3/ul (0.3-0.9); MONOCYTES % 12.9 % (0.0-11.0); NEUTROPHIL # 4.2 10^3/ul (1.6-7.5); NEUTROPHILS % 67.5 % (39.0-77.0); PLATELET COUNT 389 10^3/UL (140-415); RED CELL DISTRIBUTION WIDTH 17.5 % (11.5-14.5); WHITE BLOOD COUNT 6.2 10^3/ul (4.8-10.8)
[2016-06-15 06:55] LABS: AMYLASE 117 U/L (11-123)
[2016-06-15 07:26] LABS: ANION GAP 9 (8-16); BLOOD UREA NITROGEN < 2 mg/dl (7-20); CALCIUM 9.2 mg/dl (8.4-10.2); CARBON DIOXIDE 24 mmol/L (21-31); CHLORIDE 104 mmol/L (97-110); CREATININE 0.51 mg/dl (0.44-1.00); GLUCOSE 113 mg/dl (70-220); POTASSIUM 4.3 mmol/L (3.5-5.1); SODIUM 133 mmol/L (135-144)
[2016-06-15 08:13] VITALS: BP 112/70; RESP 18
[2016-06-15] MEDS ORDERED: IBUP200C PO (16:05)
[2016-06-15] MEDS ORDERED: HYDR-906 PO (16:05)
[2016-06-16] MEDS ORDERED: PANTOPRAZOLE (EC) 40 MG TAB PO SCH (06:00)
== END 2016-06-15 18:16 | disposition home or self-care (01) | DRG 440 ==
LOC: FTE 09:07 → PP2 12:38
PROVIDERS: ADMIT Internal Medicine; ATTEND Internal Medicine
DX: K85.20 Alcohol induced acute pancreatitis without necrosis or infection (principal); E87.8 Other disorders of electrolyte and fluid balance, not elsewhere classified; E87.6 Hypokalemia; D50.9 Iron deficiency anemia, unspecified; E83.42 Hypomagnesemia; N92.0 Excessive and frequent menstruation with regular cycle; N94.89 Other specified conditions associated with female genital organs and menstrual cycle
CPT/HCPCS: 74176; 74177; 76705; 76830; 76856; 80048; 80053; 80061; 80306; 80307; 81001; 81003; 82150; 83036; 83540; 83690; 83735; 84100; 84436; 84443; 84479; 84702; 85025; 85610; 85730; 86850; 86900; 86901; 96361; 96374; 96375; 96376; C9113; J1170; J2270; J2405; J2916; J3480; J7030; Q9967